=== PATIENT | female | born 1980 ===

== ENCOUNTER 2017-12-02 20:36 | Emergency (ER) | payer MEDICAID ==
[2017-12-02 20:49] VITALS: TEMP 97.7; O2SAT 100
--- NOTE | 2017-12-02 21:36 | ED PDOC ---
Arrival/HPI - General Chief Complaint: Back Pain Time Seen by Provider: 12/02/17 21:12 Historian: Patient - History of Present Illness Narrative History of Present Illness (Text): 12/02/17 21:29 Pt is a 37 year old female who presents tot the ER complaining of left low back pain that wraps around to the left lower abdominal area for the past 2 hours. Pt states that this is new pain and is not associated with menses, eating, or back trauma. Pt denies urine or bowel change, fever, sob, cp, n/v/d. States no change in appetite. Pt has Lupus and take methotrexate. Time/Duration: Prior to Arrival, 1-3 hours Past Medical History - Provider Review Nursing Documentation Reviewed: Yes - Travel History Have you recently traveled outside [place] w/in the past 3 mons?: No - Infectious Disease Hx of Infectious Diseases: None - Cardiac Hx Cardiac Disorders: No - Pulmonary Hx Respiratory Disorders: No - Neurological Hx Neurological Disorder: No - HEENT Hx HEENT Disorder: No - Renal Hx Renal Disorder: No - Endocrine/Metabolic Hx Endocrine Disorders: Yes Hx Systemic Lupus Erythematosus: Yes - Hematological/Oncological Hx Blood Disorders: No - Integumentary Hx Dermatological Disorder: No - Musculoskeletal/Rheumatological Hx Musculoskeletal Disorders: No - Gastrointestinal Hx Gastrointestinal Disorders: No - Genitourinary/Gynecological Hx Genitourinary Disorders: No - Psychiatric Hx Psychophysiologic Disorder: No Hx Substance Use: No - Anesthesia Hx Anesthesia: No Family/Social History - Physician Review Nursing Documentation Reviewed: Yes Family/Social History: No Known Family HX Smoking Status: Never Smoked Hx Alcohol Use: No Hx Substance Use: No Allergies/Home Meds Allergies/Adverse Reactions: Allergies No Known Allergies Allergy (Verified 12/02/17 20:49) Home Medications: Home Meds Medication Instructions Recorded Confirmed Ascorbic Acid/Ascorbate Sodium [Ra 1 tab PO DAILY 12/02/17 12/02/17 Vitamin C 500 mg Chew Tab] Folic Acid [Folic Acid] 1 mg PO DAILY 12/02/17 12/02/17 Hydroxychloroquine Sulfate 200 mg PO DAILY 12/02/17 12/02/17 [Plaquenil] Methotrexate [Methotrexate] 2.5 mg PO DAILY 12/02/17 12/02/17 predniSONE [predniSONE Tab] 5 mg PO DAILY 12/02/17 12/02/17 Review of Systems - Review of Systems Systems not reviewed;Unavailable: Acuity of Condition Constitutional: Normal Eyes: Normal ENT: Normal Respiratory: Normal Cardiovascular: Normal Gastrointestinal: Abdominal Pain (left side into groin) Genitourinary Female: Normal Musculoskeletal: Normal, Back Pain (Left side) Skin: Normal Neurological: Normal Endocrine: Normal Hemo/Lymphatic: Normal Psychiatric: Normal Physical Exam Vital Signs Reviewed: Yes Vital Signs Temp Pulse Resp BP Pulse Ox 12/03/17 00:06 80 18 104/61 100 12/02/17 20:46 97.7 F 86 16 111/83 100 Temperature: Afebrile Blood Pressure: Normal Pulse: Regular Respiratory Rate: Normal Appearance: Positive for: Well-Appearing, Non-Toxic, Comfortable Pain Distress: Mild Mental Status: Positive for: Alert and Oriented X 3 - Systems Exam Head: Present: Atraumatic, Normocephalic Pupils: Present: PERRL Extroacular Muscles: Present: EOMI Conjunctiva: Present: Normal Mouth: Present: Moist Mucous Membranes Neck: Present: Normal Range of Motion Respiratory/Chest: Present: Clear to Auscultation, Good Air Exchange. No: Respiratory Distress, Accessory Muscle Use Cardiovascular: Present: Regular Rate and Rhythm, Normal S1, S2. No: Murmurs Abdomen: Present: Tenderness (LLQ), Normal Bowel Sounds. No: Distention, Peritoneal Signs Back: Present: Other (left LBP on palpation) Upper Extremity: Present: Normal Inspection. No: Cyanosis, Edema Lower Extremity: Present: Normal Inspection. No: Edema Neurological: Present: GCS=15, CN II-XII Intact, Speech Normal Skin: Present: Warm, Dry, Normal Color. No: Rashes Psychiatric: Present: Alert, Oriented x 3, Normal Insight, Normal Concentration Medical Decision Making ED Course and Treatment: 12/02/17 21:36 Impression Pt is a 37 year old female who presents tot the ER complaining of left low back pain that wraps around to the left lower abdominal area for the past 2 hours Plan cbc, cmp, ua, ct abd and pelvis hcg urine Progress Note Spoke with pt about the CT findings and suggested ordering an US to assess acuity; pt preferred to go home and speak with her PMD tomorrow for follow up Pain rating 4/5 and pt comfortable in bed Advised that if pain worsens, fever or vomiting, to [facility] ED immediately as she will likely require surgery. - Lab Interpretations Narrative Lab Interpretation (Text): 12/02/17 23:33 FINDINGS: Lower thorax: No acute findings. ABDOMEN: Liver: Unremarkable. Gallbladder and bile ducts: Cholelithiasis Pancreas: Unremarkable. No ductal dilation. Spleen: Unremarkable. No splenomegaly. Adrenals: Unremarkable. No mass. Kidneys and ureters: Unremarkable. No obstructing stones. No hydronephrosis. Stomach and bowel: Unremarkable. No obstruction. No mucosal thickening. Appendix: No findings to suggest acute appendicitis. Normal appendix. PELVIS: Bladder: Unremarkable. No stones. Reproductive: Unremarkable as visualized. Abdomen and Pelvis Intraperitoneal space: Unremarkable. No free air. No significant fluid collection. Bones/joints: No acute fracture. No dislocation. Soft tissues: Unremarkable. Vasculature: Unremarkable. No abdominal aortic aneurysm. Lymph nodes: Unremarkable. No enlarged lymph nodes. IMPRESSION: No evidence of an acute intra-abdominal or pelvic abnormality. No nephrolithiasis or obstructive uropathy. Cholelithiasis Lab Results: 12/02/17 21:15 12/02/17 21:15 Lab Results 12/02/17 21:15: Sodium 141, Potassium 3.9, Chloride 106, Carbon Dioxide 24, Anion Gap 15, BUN 24 H, Creatinine 1.0, Est GFR ( Amer) > 60, Est GFR ( Non-Af Amer) > 60, Random Glucose 94, Calcium 9.9, Total Bilirubin 0.3, AST 21, ALT 27, Alkaline Phosphatase 40, Total Protein 6.6, Albumin 3.9, Globulin 2.7, Albumin/Globulin Ratio 1.5 12/02/17 21:15: WBC 7.5, RBC 4.11, Hgb 12.0, Hct 36.4, MCV 88.6, MCH 29.2, MCHC 33.0, RDW 13.3, Plt Count 156, MPV 12.8 H, Gran % 44.3 L, Lymph % (Auto) 42.5 H , [place] % (Auto) 5.7, Eos % (Auto) 7.2 H, Baso % (Auto) 0.3, Gran # 3.32, Lymph # (Auto) 3.2, [place] # (Auto) 0.4, Eos # (Auto) 0.5, Baso # (Auto) 0.02 12/02/17 21:10: Urine Color Yellow, Urine Appearance Clear, Urine pH 6.0, Ur Specific [place] >= 1.030, Urine Protein Negative, Urine Glucose (UA) Negative, Urine Ketones Trace H, Urine Blood Moderate H, Urine Nitrate Negative, Urine Bilirubin Negative, Urine Urobilinogen 0.2, Ur Leukocyte Esterase Negative, Urine RBC 2 - 5, Urine WBC 1 - 3, Ur Epithelial Cells 0 - 2, Calcium Oxalate Crystal Small, Urine Bacteria Mod, Urine HCG, Qual Negative I have reviewed the lab results: Yes (GFR calculated at 67ml/min) Interpretation: All labs normal - RAD Interpretation Narrative RAD Interpretations (Text): 12/03/17 13:10 CT reveals cholelithiasis Radiology Orders: 12/02/17 21:13 ABD & PELVIS W/O PO OR IV CONT [CT] Stat Commercial Kitchen Service Technician: Radiologist Disposition/Present on Arrival - Present on Arrival Any Indicators Present on Arrival: Yes History of DVT/PE: No History of Uncontrolled Diabetes: No Urinary Catheter: No History of Decub. Ulcer: No History Surgical Site Infection Following: None - Disposition Have Diagnosis and Disposition been Completed?: Yes Diagnosis: Cholelithiasis Disposition: HOME/ ROUTINE Disposition Time: 23:55 Patient Plan: Discharge Condition: GOOD Discharge Instructions (ExitCare): Gallstones (DC) Additional Instructions: Dear Patient, Please see your primary doctor to follow up with the diagnosis of gallstones that was found on CT scan today. If you experience any alarming symptoms such as high fever, intense pain, [id number], then return to the ER immediately. You may take Motrin 400-600 mg for moderate pain but take it with food. All the best in your recovery! Referrals: Wellington Love MD [Primary Care Provider] - Follow up with primary Forms: [employer] (Sinhala)
[2017-12-02 22:16] LABS: ALB/GLOB RATIO 1.5 (1.1-1.8); ALBUMIN 3.9 g/dL (3.0-4.8); ALT/SGPT 27 U/L (7-56); AST/SGOT 21 U/L (14-36); BLOOD UREA NITROGEN 24 mg/dL (7-21); CALCIUM 9.9 mg/dL (8.4-10.5); GFR AFRICAN-AMERICAN > 60; GFR NON-AFRICAN AMERICAN > 60
[2017-12-02 22:22] LABS: BASO # 0.02 K/mm3 (0.0-2.0); BASO % 0.3 % (0.0-3.0); EOS # 0.5 (0.0-0.7); EOS % 7.2 % (1.5-5.0); GRAN # 3.32 (1.4-6.5); GRAN % 44.3 % (50.0-68.0); LYMPH # 3.2 (1.2-3.4); LYMPH % 42.5 % (22.0-35.0); MEAN CELL VOLUME 88.6 fl (80.0-105.0); MEAN CORPUSCULAR HEMOGLOBIN 29.2 pg (25.0-35.0); MEAN PLATELET VOLUME 12.8 fl (7.0-11.0); MONO # 0.4 (0.1-0.6); MONO % 5.7 % (1.0-6.0); RBC 4.11 10^6/uL (3.5-6.1); RED CELL DISTRIBUTION WIDTH 13.3 % (11.5-14.5); WHITE BLOOD COUNT 7.5 10^3/ul (4.5-11.0)
[2017-12-02 22:57] LABS: URINE BILIRUBIN NEGATIVE (NEGATIVE); URINE BLOOD MODERATE (NEGATIVE); URINE GLUCOSE (UA) NEGATIVE (NEGATIVE); URINE LEUKOCYTE ESTERASE NEGATIVE Leu/uL (NEGATIVE); URINE NITRATE NEGATIVE (NEGATIVE); URINE PROTEIN NEGATIVE mg/dL (<30 mg/dL); URINE UROBILINOGEN 0.2 E.U./dL (<1 E.U./dL)
[2017-12-02 22:59] LABS: URINE APPEARANCE CLEAR (CLEAR); URINE COLOR YELLOW (YELLOW)
[2017-12-02 23:16] LABS: HCG,QUALITATIVE URINE NEGATIVE (NEGATIVE)
[2017-12-02 23:30] LABS: URINE CALCIUM OXALATE CRYSTALS SMALL /hpf; URINE EPITHELIAL CELLS 0 - 2 /hpf (0-5)
[2017-12-02 23:31] LABS: URINE BACTERIA MOD (NEG)
[2017-12-03 00:08] VITALS: BP 104/61; PULSE 80; RESP 18
--- NOTE | 2017-12-03 08:33 | CT ---
PROCEDURE: CT Abdomen and Pelvis without intravenous contrast HISTORY: abdominal pain COMPARISON: None. TECHNIQUE: Without contrast. Contrast Dose: Radiation dose: Total exam DLP = 279 mGy-cm. This CT exam was performed using one or more of the following dose reduction techniques: Automated exposure control, adjustment of the mA and/or kV according to patient size, and/or use of iterative reconstruction technique. FINDINGS: LOWER THORAX: Unremarkable. LIVER: Unremarkable. No gross lesion or ductal dilatation. GALLBLADDER AND BILE DUCTS: Small gallstones PANCREAS: Unremarkable. No gross lesion or ductal dilatation. SPLEEN: Unremarkable. ADRENALS: Unremarkable. No mass. KIDNEYS AND URETERS: Unremarkable. No hydronephrosis. No solid mass. VASCULATURE: Unremarkable. No aortic aneurysm. BOWEL: Unremarkable. No obstruction. No gross mural thickening. APPENDIX: Unremarkable. Normal appendix. PERITONEUM: Unremarkable. No free fluid. No free air. LYMPH NODES: Unremarkable. No enlarged lymph nodes. BLADDER: Unremarkable. REPRODUCTIVE: Unremarkable. BONES: No acute fracture. OTHER FINDINGS: The report concurs with the preliminary [facility] report IMPRESSION: No acute intra-abdominal findings. No evidence of urolithiasis Cholelithiasis
== END 2017-12-03 00:15 | disposition home or self-care (01) ==
LOC: ED 20:36
DX: K80.20 Calculus of gallbladder without cholecystitis without obstruction (principal)